=== PATIENT | female | born 1985 | race American Indian/Alaskan Native ===

== ENCOUNTER 2020-01-12 10:00 | Outpatient (CLI) | payer MEDICAID ==
[2020-01-12 11:12] LABS: Hemoglobin 10.9 gm/dl (10.1-14.3)
[2020-01-12 11:24] LABS: Blood Urea Nitrogen 7 mg/dL (7-17); Calcium 9.6 mg/dL (8.4-10.2); Hemolysis Index 1
[2020-01-12 11:27] LABS: BUN/Creatinine Ratio 14
[2020-01-12 11:34] LABS: Hematocrit 32.8 % (30.3-42.9); Mean Corpuscular HGB Conc 33 % (30-34); Mean Corpuscular Volume 85 fl (79-97); Platelet Count 394 K/mm3 (140-440); Red Blood Count 3.87 M/mm3 (3.65-5.03); Red Cell Distribution Width 14.8 % (13.2-15.2)
[2020-01-12 15:53] VITALS: BP 148/89
[2020-01-14] MEDS ORDERED: MAGNESIUM OXIDE 400 MG TAB PO SCH (06:00)
[2020-01-14] MEDS ORDERED: MIDAZOLAM 2 MG/2 ML INJ IV NR (06:00)
[2020-01-14] MEDS ORDERED: CELECOXIB 200 MG CAP PO NR (06:00)
[2020-01-14] MEDS ORDERED: GABAPENTIN 300 MG CAP PO NR (06:00)
[2020-01-14] MEDS ORDERED: LACTATED RINGERS 1,000 ML IV SCH (06:00)
== END 2020-01-12 12:00 | disposition home or self-care (01) ==
LOC: LAB 10:00 → EDSTATUS 02-11 07:30
PROVIDERS: ATTEND Obstetrics & Gynecology
DX: Z30.2 Encounter for sterilization (principal); Z53.8 Procedure and treatment not carried out for other reasons; G43.909 Migraine, unspecified, not intractable, without status migrainosus; I10 Essential (primary) hypertension; J45.909 Unspecified asthma, uncomplicated; F32.9 Major depressive disorder, single episode, unspecified; Z98.890 Other specified postprocedural states; Z87.440 Personal history of urinary (tract) infections; Z79.899 Other long term (current) drug therapy; Z79.84 Long term (current) use of oral hypoglycemic drugs
CPT/HCPCS: 36415; 80048; 84703; 85027; U0003

== ENCOUNTER 2020-07-06 19:41 | Outpatient (CLI) | payer MEDICAID, OTHER ==
[2020-07-06 20:35] VITALS: BP 120/72
[2020-07-06] MEDS ORDERED: LACTATED RINGERS 500 ML IV ONE (21:28)
[2020-07-06 22:58] LABS: Bacteria,Urine 2+ /HPF (Negative); Bilirubin,Urine NEG (Negative); Blood,Urine NEG (Negative); Color,Urine Amber (Yellow); Mucus,Urine 3+ /HPF
== END 2020-07-06 23:19 | disposition home or self-care (01) ==
LOC: TRG 19:41 → APU 19:43 → TRG 23:19
PROVIDERS: ATTEND Obstetrics & Gynecology
DX: O47.02 False labor before 37 completed weeks of gestation, second trimester (principal); Z3A.26 26 weeks gestation of pregnancy
CPT/HCPCS: 59025; 81001

== ENCOUNTER 2020-08-06 20:02 | Outpatient (CLI) | payer MEDICAID, OTHER ==
[2020-08-06 20:35] VITALS: BP 115/59
[2020-08-06] MEDS ORDERED: LACTATED RINGERS 1,000 ML IV ONE (20:55)
[2020-08-06 21:13] LABS: Bacteria,Urine 1+ /HPF (Negative); Mucus,Urine 1+ /HPF
[2020-08-06 21:20] LABS: Bilirubin,Urine Negative (Negative); Color,Urine Yellow (Yellow)
[2020-08-06 21:21] LABS: Protein,Urine <15 mg/dL mg/dL (Negative)
[2020-08-06] MEDS ORDERED: BUTALB/ACETAMINOPHEN/CAFFEINE TAB PO ONE (21:51)
== END 2020-08-06 23:22 | disposition home or self-care (01) ==
LOC: TRG 20:02 → APU 20:17 → TRG 23:22
PROVIDERS: ATTEND Obstetrics & Gynecology
DX: O13.3 Gestational [pregnancy-induced] hypertension without significant proteinuria, third trimester (principal); Z3A.31 31 weeks gestation of pregnancy
CPT/HCPCS: 59025; 81001; 82962

== ENCOUNTER 2020-08-11 15:30 | Outpatient (CLI) | payer MEDICAID ==
[2020-08-11 16:58] VITALS: BP 125/77
== END 2020-08-11 18:07 | disposition home or self-care (01) ==
LOC: TRG 15:30 → APU 15:33 → TRG 18:07
PROVIDERS: ATTEND Obstetrics & Gynecology
DX: O13.3 Gestational [pregnancy-induced] hypertension without significant proteinuria, third trimester (principal); Z3A.32 32 weeks gestation of pregnancy
CPT/HCPCS: 59025; 82962

== ENCOUNTER 2020-08-16 11:31 | Inpatient (IN) | payer BC, MEDICAID ==
[2020-08-16] MEDS ORDERED: DOCUSATE SODIUM 100 MG CAP PO PRN (14:36)
[2020-08-16] MEDS ORDERED: DEXTROSE 50% IN WATER (25GM) 50 ML SYRINGE IV PRN (14:37)
[2020-08-16] MEDS ORDERED: ACETAMINOPHEN 325 MG TAB PO PRN (15:00)
[2020-08-16] MEDS ORDERED: SENNOSIDES/DOCUSATE SODIUM 8.6/50 MG TAB PO PRN (15:00)
[2020-08-16] MEDS: BETAMET ACET/BETAMET NA PH 6 MG/ML INJ 5 ML MDV IM SCH (18:09)
[2020-08-16] MEDS: PRENATAL VIT27-FE FUMARATE-FOLIC ACID VIT TAB PO SCH (18:09)
[2020-08-16] MEDS: INSULIN REGULAR, HUMAN 100 UNITS/1 ML SUB-Q SCH ×2 (18:17→22:29)
[2020-08-16 18:25] LABS: Basophils % (Auto) 0.3 % (0.0-1.8); Eosinophils % (Auto) 0.7 % (0.0-4.3); Lymphocytes % (Auto) 15.4 % (13.4-35.0); Mean Corpuscular HGB Conc 32 % (30-34); Mean Corpuscular Volume 88 fl (79-97); Monocytes # (Auto) 0.6 K/mm3 (0.0-0.8); Monocytes % (Auto) 10.2 % (0.0-7.3); Platelet Count 276 K/mm3 (140-440); Red Blood Count 3.54 M/mm3 (3.65-5.03); Red Cell Distribution Width 13.6 % (13.2-15.2)
[2020-08-16 18:46] LABS: Alanine Aminotransferase 5 units/L (7-56); Uric Acid 2.7 mg/dL (3.5-7.6)
--- NOTE | 2020-08-17 07:59 | History and Physical Report ---
History of Present Illness Date of examination: 08/17/20 Date of admission: 08/16/20 14:36 Chief complaint: glucose control History of present illness: 34y/0 @ 32+6 weeks to triage with the complaint of uncontrolled DM. She also had previous reported some intermittent headaches. The patient is currently receiving labetalol of hypertension and sliding scale insulin for DM. The patient is being admitted for blood pressure and glucose control. cour se also complicated persistent hip pain. Past History Past Medical History: asthma, hypertension, diabetes Past Surgical History: D&C, other (reduction mammoplasty) Social history: single - Obstetrical History Expected Date of Delivery: 10/06/20 Actual Gestation: 32 Week(s) 6 Day(s) : 6 Para: 4 Hx # Term Pregnancies: 4 Number of Pregnancies: 0 Spontaneous Abortions: 0 Induced : 1 Number of Living Children: 4 Medications and Allergies Allergies Allergy/AdvReac Type Severity Reaction Status Date / Time No Known Allergies Allergy Verified 08/11/20 16:58 Home Medications Medication Instructions Recorded Confirmed Last Taken Type labetaloL [Labetalol 100mg TAB] 100 mg PO BID 01/06/20 08/17/20 1 Day Ago History ~08/16/20 Admelog 7 unit SUB-Q ACHS 08/17/20 08/17/20 1 Day Ago History ~08/16/20 Active Meds: Active Medications Acetaminophen (Acetaminophen 325 Mg Tab) 650 mg PO Q4H PRN PRN Reason: Pain MILD(1-3)/Fever >100.5/DOWNS Aspirin (Aspirin 81 Mg Tab Chew) 81 mg PO QDAY RENEE Betamethasone Acet/Betameth SodPhos (Betamet Acet/Betamet Na Ph 6 Mg/Ml Inj 5 Ml Mdv) 12 mg IM Q24H RENEE Stop: 08/17/20 15:01 Last Admin: 08/16/20 18:09 Dose: 12 mg Documented by: Dextrose (Dextrose 50% In Water (25gm) 50 Ml Syringe) 50 ml IV Q30MIN PRN; Protocol PRN Reason: Hypoglycemia Docusate Sodium (Docusate Sodium 100 Mg Cap) 100 mg PO Q12HR PRN PRN Reason: Constipation Insulin Human Regular (Insulin Regular, Human 100 Units/1 Ml) 0 units SUB-Q ACHS RENEE; Protocol Last Admin: 03/29/21 22:29 Dose: 3 units Documented by: Labetalol HCl (Labetalol 100 Mg Tab) 100 mg PO BID [facility] Last Admin: 08/16/20 22:11 Dose: 100 mg Documented by: Multivitamins/Iron/Calcium ( [id number] Fumarate-Folic Acid Vit Tab) 1 each PO QDAY [facility] Last Admin: 08/16/20 18:09 Dose: 1 each Documented by: Senna/Docusate Sodium (Sennosides/Docusate Sodium 8.6/50 Mg Tab) 2 tab PO Q12H PRN PRN Reason: Laxative Effect - Vital Signs Vital signs: Vital Signs Pulse BP 102 H 117/67 08/16/20 11:49 08/16/20 11:49 Temp Pulse Resp BP Pulse Ox 98.3 F 89 18 131/69 98 08/17/20 07:09 08/17/20 07:50 08/17/20 07:09 08/17/20 07:31 08/17/20 07:50 - Physical Exam Breasts: Positive: deferred Cardiovascular: Regular rate Lungs: Positive: Clear to auscultation Abdomen: Positive: normal appearance Results Result Diagrams: 08/16/20 18:03 08/16/20 17:52 Abnormal lab results 08/16/20 08/16/20 08/16/20 Range/Units 12:10 17:52 18:03 RBC 3.54 L (3.65-5.03) M/mm3 Hgb 10.0 L (10.1-14.3) gm/dl [place] % (Auto) 10.2 H (0.0-7.3) % Lymph # (Auto) 1.0 L (1.2-5.4) K/mm3 Seg Neutrophils % 73.4 H (40.0-70.0) % Creatinine 0.3 L (0.6-1.2) mg/dL POC Glucose 182 H (70-105) mg/dL Uric Acid 2.7 L (3.5-7.6) mg/dL ALT 5 L (7-56) units/L 08/16/20 08/16/20 Range/Units 18:17 22:07 RBC (3.65-5.03) M/mm3 Hgb (10.1-14.3) gm/dl [place] % (Auto) (0.0-7.3) % Lymph # (Auto) (1.2-5.4) K/mm3 Seg Neutrophils % (40.0-70.0) % Creatinine (0.6-1.2) mg/dL POC Glucose 139 H 159 H (70-105) mg/dL Uric Acid (3.5-7.6) mg/dL ALT (7-56) units/L All other labs normal. Assessment and Plan - Patient Problems (1) Gestational diabetes Current Visit: Yes Status: Acute Plan to address problem: admit for steroids, PIH labs, 24 hr urine collection MFM consulted for DM control (2) Hypertension affecting in third trimester Current Visit: Yes Status: Acute
[2020-08-17] MEDS: INSULIN REGULAR, HUMAN 100 UNITS/1 ML SUB-Q SCH ×4 (08:45→20:49)
[2020-08-17] MEDS: PRENATAL VIT27-FE FUMARATE-FOLIC ACID VIT TAB PO SCH (10:14)
[2020-08-17] MEDS: ASPIRIN 81 MG TAB CHEW PO SCH (10:17)
[2020-08-17] MEDS ORDERED: BUTALB/ACETAMINOPHEN/CAFFEINE TAB PO PRN (13:10)
[2020-08-17] MEDS: BETAMET ACET/BETAMET NA PH 6 MG/ML INJ 5 ML MDV IM SCH (18:19)
--- NOTE | 2020-08-17 18:21 | Consultation ---
History of Present Illness Consult date: 08/17/20 Requesting physician: GEOVANNA ALDRICH Reason for consult: other (Glycemic management) History of present illness: 34y/0 @ 32+6 weeks to triage with the complaint of uncontrolled DM. She also had previous reported some intermittent headaches. The patient is currently receiving labetalol of hypertension and sliding scale insulin for DM. The patient is being admitted for blood pressure and glucose control. course also complicated persistent hip pain. She is followed by Endocrinology for her Type II DM. Prior to admission she was taking Basaglar 30 units and sliding scale Admelog 7-11 units. She admits she is not compliant with all meals. Past History Past Medical History: asthma, hypertension, diabetes Past Surgical History: D&C, other (reduction mammoplasty) - Obstetrical History : 6 Para: 4 Medications and Allergies Allergies Allergy/AdvReac Type Severity Reaction Status Date / Time No Known Allergies Allergy Verified 08/11/20 16:58 Home Medications Medication Instructions Recorded Confirmed Last Taken Type labetaloL [Labetalol 100mg TAB] 100 mg PO BID 01/06/20 08/17/20 1 Day Ago History ~08/16/20 Admelog 7 unit SUB-Q ACHS 08/17/20 08/17/20 1 Day Ago History ~08/16/20 Active Meds: Active Medications Acetaminophen (Acetaminophen 325 Mg Tab) 650 mg PO Q4H PRN PRN Reason: Pain MILD(1-3)/Fever >100.5/DOWNS Acetaminophen/Butalbital/Caffeine (Butalb/Acetaminophen/Caffeine Tab) 2 tab PO Q6H PRN PRN Reason: Headache Last Admin: 08/17/20 13:18 Dose: 2 tab Documented by: Aspirin (Aspirin 81 Mg Tab Chew) 81 mg PO QDAY RENEE Last Admin: 08/17/20 10:17 Dose: 81 mg Documented by: Betamethasone Acet/Betameth SodPhos (Betamet Acet/Betamet Na Ph 6 Mg/Ml Inj 5 Ml Mdv) 12 mg IM Q24H RENEE Stop: 08/17/20 23:00 Last Admin: 08/16/20 18:09 Dose: 12 mg Documented by: Dextrose (Dextrose 50% In Water (25gm) 50 Ml Syringe) 50 ml IV Q30MIN PRN; Protocol PRN Reason: Hypoglycemia Docusate Sodium (Docusate Sodium 100 Mg Cap) 100 mg PO Q12HR PRN PRN Reason: Constipation Insulin Human Regular (Insulin Regular, Human 100 Units/1 Ml) 0 units SUB-Q SSINSMBU [facility]; Protocol Last Admin: 08/17/20 14:36 Dose: 3 units Documented by: Labetalol HCl (Labetalol 100 Mg Tab) 100 mg PO BID [facility] Last Admin: 08/17/20 10:14 Dose: 100 mg Documented by: Multivitamins/Iron/Calcium ( [id number] Fumarate-Folic Acid Vit Tab) 1 each PO QDAY [facility] Last Admin: 08/17/20 10:14 Dose: 1 each Documented by: Senna/Docusate Sodium (Sennosides/Docusate Sodium 8.6/50 Mg Tab) 2 tab PO Q12H PRN PRN Reason: Laxative Effect Review of Systems Constitutional: chronic headaches Eyes: no blurred vision Ears, nose, mouth and throat: headache, no decreased hearing, no nasal congestion, no sore throat Cardiovascular: no chest pain, no orthopnea, no palpitations, no lightheadedness Respiratory: no cough, no shortness of breath, no wheezing Breasts: deferred Gastrointestinal: no nausea, no vomiting Genitourinary: no vaginal bleeding, no leakage of fluid, no dysuria Rectal Exam: deferred Integumentary: no rash, no pruritis Psychiatric: anxiety Endocrine: high blood sugars Hematologic/Lymphatic: no easy bruising - Vital Signs Vital signs: Vital Signs Pulse BP 102 H 117/67 08/16/20 11:49 08/16/20 11:49 Temp Pulse Resp BP Pulse Ox 99.0 F 77 20 116/61 96 08/17/20 16:01 08/17/20 16:08 08/17/20 16:01 08/17/20 16:02 08/17/20 16:08 - Physical Exam Breasts: Positive: deferred Cardiovascular: Regular rate Lungs: Positive: Clear to auscultation Abdomen: Positive: soft, normal bowel sounds Extremities: Positive: normal Deep Tendon Reflex Grade: Normal +2 - Obstetrical FHR: category 1 Uterine Tone Measurement Phase: Resting Results Result Diagrams: 08/16/20 18:03 08/16/20 17:52 Abnormal lab results 08/16/20 08/16/20 08/16/20 Range/Units 17:52 18:03 18:17 RBC 3.54 L (3.65-5.03) M/mm3 Hgb 10.0 L (10.1-14.3) gm/dl [place] % (Auto) 10.2 H (0.0-7.3) % Lymph # (Auto) 1.0 L (1.2-5.4) K/mm3 Seg Neutrophils % 73.4 H (40.0-70.0) % Creatinine 0.3 L (0.6-1.2) mg/dL POC Glucose 139 H (70-105) mg/dL Uric Acid 2.7 L (3.5-7.6) mg/dL ALT 5 L (7-56) units/L 08/16/20 08/17/20 08/17/20 Range/Units 22:07 08:46 11:56 RBC (3.65-5.03) M/mm3 Hgb (10.1-14.3) gm/dl [place] % (Auto) (0.0-7.3) % Lymph # (Auto) (1.2-5.4) K/mm3 Seg Neutrophils % (40.0-70.0) % Creatinine (0.6-1.2) mg/dL POC Glucose 159 H 128 H 137 H (70-105) mg/dL Uric Acid (3.5-7.6) mg/dL ALT (7-56) units/L 08/17/20 08/17/20 Range/Units 14:20 17:23 RBC (3.65-5.03) M/mm3 Hgb (10.1-14.3) gm/dl [place] % (Auto) (0.0-7.3) % Lymph # (Auto) (1.2-5.4) K/mm3 Seg Neutrophils % (40.0-70.0) % Creatinine (0.6-1.2) mg/dL POC Glucose 160 H 123 H (70-105) mg/dL Uric Acid (3.5-7.6) mg/dL ALT (7-56) units/L All other labs normal. Assessment and Plan - Patient Problems (1) Gestational diabetes Current Visit: Yes Status: Acute Qualifiers: Gestational diabetes mellitus control: insulin-controlled Trimester: third trimester Qualified Code(s): O24.414 - Gestational diabetes mellitus in , insulin controlled Plan to address problem: Perform blood sugar monitoring pre and post meal Recommend providing sliding scale insulin for meal coverage (premeal) to avoid hypoglycemia Restart home medication, Basaglar to obtain more fpc coverage. Patient is reluctant to switch to NPH, which likely would have better absorption in pr egnancy. Consider a weight based split dose regimen instead of a sliding scale on discharge (2) Hypertension affecting in third trimester Current Visit: Yes Status: Acute Plan to address problem: Continue Labetalol as prescribed Preeclampsia labs normal thus far, 24 hour urine protein pending Continue current blood pressure monitoring, notify OB for severe range blood pressure May treat headache prn
[2020-08-17] MEDS ORDERED: ZOLPIDEM 5 MG TAB PO PRN (21:27)
[2020-08-17] MEDS ORDERED: LACTATED RINGERS 1,000 ML ONE (21:33)
[2020-08-17] MEDS ORDERED: INSULIN GLARGINE 100 UNITS/ML SUB-Q SCH (22:00)
[2020-08-18] MEDS: INSULIN REGULAR, HUMAN 100 UNITS/1 ML SUB-Q SCH (10:52)
[2020-08-18] MEDS: PRENATAL VIT27-FE FUMARATE-FOLIC ACID VIT TAB PO SCH (10:55)
[2020-08-18] MEDS: ASPIRIN 81 MG TAB CHEW PO SCH (11:13)
--- NOTE | 2020-08-18 16:14 | Discharge Summary ---
Providers - Providers Date of Admission: 08/16/20 14:36 Date of discharge: 08/18/20 Attending physician: GEOVANNA ALDRICH Primary care physician: GEOVANNA ALDRICH Hospitalization Reason for admission: observation, other (blood glucose and blood pressure monitoring) Hospital course: Pt was admitted for blood glucose stabilization, blood pressure monitoring, and 24 hour urine collection. No changes were made to her home meds. She will follow up with [facility] aide in 1 week. Condition at discharge: Good Disposition: DC-01 TO HOME OR SELFCARE Plan - Provider Discharge Summary Activity: routine Additional instructions: [] Smoking cessation referral if applicable(refer to patient education folder for contact #) [] Refer to [facility]'s [facility] Booklet Call your doctor immediately for: * Fever > 100.5 * Heavy vaginal bleeding ( >1 pad per hour) * Severe persistent headache * Shortness of breath * Reddened, hot, painful area to leg or breast * Drainage or odor from incision. * Keep incision clean and dry at all times and follow doctor's instructions regarding bathing/showering - Follow up plan Follow up: DAMON COMBS MD [Staff Physician] - 7 Days (Please call office to schedule appointment in 1 week.)
[2020-08-18 16:18] VITALS: BP 111/65
--- NOTE | 2020-08-18 18:44 | Progress Note ---
Assessment and Plan - Patient Problems (1) Gestational diabetes Status: Acute Qualifiers: Gestational diabetes mellitus control: insulin-controlled Trimester: third trimester Qualified Code(s): O24.414 - Gestational diabetes mellitus in , insulin controlled (2) Hypertension affecting in third trimester Status: Acute Subjective Date of service: 08/18/20 Objective - Constitutional Vitals: Vital Signs - 12hr 08/18/20 08/18/20 08/18/20 06:44 06:49 06:54 Temperature Pulse Rate 85 84 85 Respiratory Rate Blood Pressure O2 Sat by Pulse 96 96 96 Oximetry 08/18/20 08/18/20 08/18/20 06:59 07:04 07:09 Temperature Pulse Rate 82 75 85 Respiratory Rate Blood Pressure O2 Sat by Pulse 96 96 96 Oximetry 08/18/20 08/18/20 08/18/20 07:14 07:19 07:21 Temperature Pulse Rate 86 78 99 H Respiratory Rate Blood Pressure 123/64 O2 Sat by Pulse 96 97 Oximetry 08/18/20 08/18/20 08/18/20 07:23 07:25 07:30 Temperature 98.2 F Pulse Rate 85 92 H Respiratory 18 Rate Blood Pressure O2 Sat by Pulse 80 L 98 97 Oximetry 08/18/20 08/18/20 08/18/20 07:35 07:40 07:45 Temperature Pulse Rate 88 81 80 Respiratory Rate Blood Pressure O2 Sat by Pulse 98 97 98 Oximetry 08/18/20 08/18/20 08/18/20 07:50 07:55 08:25 Temperature Pulse Rate 85 91 H 81 Respiratory Rate Blood Pressure O2 Sat by Pulse 97 98 94 Oximetry 08/18/20 08/18/20 08/18/20 08:26 08:31 08:36 Temperature Pulse Rate 81 83 81 Respiratory Rate Blood Pressure O2 Sat by Pulse 95 97 97 Oximetry 08/18/20 08/18/20 08/18/20 08:41 08:46 08:51 Temperature Pulse Rate 82 85 98 H Respiratory Rate Blood Pressure O2 Sat by Pulse 98 98 97 Oximetry 08/18/20 08/18/20 08/18/20 08:56 09:01 09:06 Temperature Pulse Rate 93 H 94 H 93 H Respiratory Rate Blood Pressure O2 Sat by Pulse 97 98 98 Oximetry 08/18/20 08/18/20 08/18/20 09:11 09:16 09:21 Temperature Pulse Rate 91 H 90 92 H Respiratory Rate Blood Pressure O2 Sat by Pulse 99 99 99 Oximetry 08/18/20 08/18/20 08/18/20 09:26 09:31 09:36 Temperature Pulse Rate 99 H 98 H 96 H Respiratory Rate Blood Pressure O2 Sat by Pulse 98 99 98 Oximetry 08/18/20 08/18/20 08/18/20 09:41 09:46 09:51 Temperature Pulse Rate 94 H 93 H 89 Respiratory Rate Blood Pressure O2 Sat by Pulse 98 98 99 Oximetry 08/18/20 08/18/20 08/18/20 09:56 10:01 10:06 Temperature Pulse Rate 93 H 99 H 98 H Respiratory Rate Blood Pressure O2 Sat by Pulse 99 99 99 Oximetry 08/18/20 08/18/20 08/18/20 10:20 10:51 10:55 Temperature Pulse Rate 68 105 H 105 H Respiratory Rate Blood Pressure 134/73 134/73 O2 Sat by Pulse 77 L Oximetry 08/18/20 08/18/20 08/18/20 11:11 12:15 12:36 Temperature 97.9 F Pulse Rate 96 H Respiratory 18 Rate Blood Pressure 128/64 O2 Sat by Pulse 83 L Oximetry 08/18/20 08/18/20 16:00 16:16 Temperature 98.2 F Pulse Rate 88 Respiratory 18 Rate Blood Pressure 111/65 O2 Sat by Pulse Oximetry - Labs CBC & Chem 7: 08/16/20 18:03 08/16/20 17:52 Labs: Abnormal lab results 08/17/20 08/17/20 08/18/20 Range/Units 20:20 20:32 05:42 POC Glucose 172 H 137 H (70-105) mg/dL Ur Total Protein 24 Hr 351.00 H (2-200) mg/dL Urine Total Protein 27 H (5-11.8) mg/dL 08/18/20 Range/Units 10:43 POC Glucose 154 H (70-105) mg/dL Ur Total Protein 24 Hr (2-200) mg/dL Urine Total Protein (5-11.8) mg/dL Medications & Allergies - Medications Allergies/Adverse Reactions: Allergies No Known Allergies Allergy (Verified 08/11/20 16:58) Home Medications: Home Medications Medication Instructions Recorded Confirmed Last Taken Type labetaloL [Labetalol 100mg TAB] 100 mg PO BID 01/06/20 08/17/20 1 Day Ago History ~08/16/20 Admelog 7 unit SUB-Q ACHS 08/17/20 08/17/20 1 Day Ago History ~08/16/20
== END 2020-08-18 16:35 | disposition home or self-care (01) | DRG 832 ==
LOC: TRG 11:31 → APU 11:33 → LD 14:36 → TRG 14:36
PROVIDERS: ADMIT Obstetrics & Gynecology; ATTEND Obstetrics & Gynecology
DX: O24.414 Gestational diabetes mellitus in pregnancy, insulin controlled (principal); O16.3 Unspecified maternal hypertension, third trimester; O99.513 Diseases of the respiratory system complicating pregnancy, third trimester; J45.909 Unspecified asthma, uncomplicated; Z20.822 Contact with and (suspected) exposure to COVID-19; Z3A.32 32 weeks gestation of pregnancy; Z79.899 Other long term (current) drug therapy
CPT/HCPCS: 36415; 82565; 82962; 84156; 84450; 84460; 84550; 85025; G0378; J0702; J1815; U0003